=== PATIENT | male | born 1940 | race Caucasian/White ===

== ENCOUNTER → 2024-01-01 11:45 | Outpatient (CLI) | payer OTHER, SELFPAY ==
--- NOTE | 2024-01-01 | DI.RAD.S_ITS ---
PROCEDURE: XR CHEST 2V INDICATIONS: COUGH TECHNIQUE: 2 views of the chest were acquired. COMPARISON: [facility], , CHEST 2 VIEW, 04/30/2017, 12:52. FINDINGS: Surgical changes and devices: None. Lungs and pleura: There are extensive, diffuse interstitial markings. Patchy airspace opacities are present at the bilateral lung bases, more confluent on the left than on the right. No pleural effusion or pneumothorax. Mediastinum: Mediastinal contours are normal. Heart size is normal. Bones and chest wall: No suspicious bony abnormalities. Soft tissues appear unremarkable. IMPRESSION: 1. Interstitial prominence suggesting pulmonary edema. There may also be a component of fibrotic changes present. 2. Patchy opacities at the bilateral lung bases which may represent fibrotic change, although aspiration/infection could also cause this appearance. Dictated by: Nancie Baez M.D. on 01/01/2024 at 14:38 Approved by: Nancie Baez M.D. on 01/01/2024 at 14:43
== END ==
LOC: RAD 11:51
PROVIDERS: Referring Provider Internal Medicine Cardiovascular Disease; Visit Provider Internal Medicine Cardiovascular Disease
DX: R05.2 Subacute cough (principal); I10 Essential (primary) hypertension
CPT/HCPCS: 71046; 87070; 87116; 87205; 87206